=== PATIENT | female | born 1975 | race Two or more races ===

== ENCOUNTER 2021-03-06 05:35 | Inpatient (IN) | payer MEDICAID, OTHER ==
[~2021-03-06] VITALS: Ht 152.4 cm; Wt 73.3 kg
--- NOTE | 2021-03-06 05:45 | NUR ---
PATIENT'S PULSE OX 89% IN TRIAGE. NO RESPIRATORY DISTRESS NOTED. PATIENT PLACED ON 2LNC IN TRIAGE TO IMPROVE OXYGENATION STATUS, 96% WITH O2. EKG COMPLETED IN TRIAGE.
--- NOTE | 2021-03-06 07:43 | NUR ---
patient to room from lobby
--- NOTE | 2021-03-06 08:07 | NUR ---
PT LAYING IN BED, RESPIRATIONS UNLABORED. FREQUENT DRY COUGH. PT PLACED ON NC IN BED, 91% ON RA AND 97% ON 2L NC. PT DENIES MEDICAL HX. CHANGED INTO GOWN, [employer], BP AND SPO2 IN PLACE. AWAITING XRAY AND LABS.
[2021-03-06 08:31] LABS: BASOPHILS % (AUTO) 0 % (0-1); EOSINOPHILS % (AUTO) 0 % (1-7); LYMPHOCYTES % (AUTO) 12 % (22-44); MEAN CORPUSCULAR HEMOGLOBIN 25.5 pg (27.0-34.8); MEAN CORPUSCULAR HGB CONC 32.8 g/dL (32.4-35.8); MEAN PLATELET VOLUME 8.5 fL (7.4-10.4); MONOCYTES % (AUTO) 3 % (2-9); NEUTROPHILS % (AUTO) 85 % (42-75); PLATELET COUNT 189 x10^3/uL (130-400); RED BLOOD COUNT 4.45 x10^6/uL (3.82-5.3); RED CELL DISTRIBUTION WIDTH 17.6 % (9.6-15.2)
[2021-03-06 08:41] LABS: ALBUMIN 2.8 g/dL (3.4-5.0); ANION GAP 4 mmol/L (5-15); CALCIUM 8.5 mg/dL (8.5-10.1); CHLORIDE 105 mmol/L (98-107); CREATININE 0.75 mg/dL (0.55-1.02)
--- NOTE | 2021-03-06 09:02 | NUR ---
PT RESTING BACK IN BED, RESPIRATIONS EVEN AND UNLABORED, SLIGHTLY RAPID. NAD NOTED AT THIS TIME. PT HAS FREQUENT DRY COUGH. SIDE RAIL UP, CALL LIGHT IN REACH.
--- NOTE | 2021-03-06 10:05 | NUR ---
PT WAS ON 2L NASAL CANNULA PRIOR TO AMBULATION. PT AMBULATED IN HALLWAY WITH SPO2, STARTING 95% 95bpm. PT DROPPED TO 88% AND TACHYCARDIA AT 102bpm. PT ATTACHED TO ALL MONITORS AFTER AMBULATION. ROOM AIR SAT IN SUPINE POSITION WAS 85%. PT PLACED BACK ON 2L NASASL CANNULA, O2 STAT BACK AT 93%. HR AT 90.
[2021-03-06] MEDS ORDERED: DEXAMETHASONE 4 MG/ML, 1ML ONE (10:51)
[2021-03-06] MEDS ORDERED: ACETAMINOPHEN 325 MG TABLET ONE (10:51)
[2021-03-06] MEDS ORDERED: KETOROLAC 30 MG/1 ML ONE (10:51)
[2021-03-06] MEDS ORDERED: SODIUM CHLORIDE 0.9% 1,000ML IVBOLUS ONE (11:00)
[2021-03-06] MEDS ORDERED: CEFTRIAXONE 1,000 MG in DEXTROSE 5% 50 ML IVPB ONE (11:00)
[2021-03-06] MEDS ORDERED: DEXAMETHASONE 4 MG/ML, 1ML IV ONE (11:00)
[2021-03-06] MEDS ORDERED: KETOROLAC 30 MG/1 ML IVPush ONE (11:00)
[2021-03-06] MEDS ORDERED: AZITHROMYCIN 500 MG in SODIUM CHLORIDE 0.9% 250 ML IV ONE (11:00)
[2021-03-06] MEDS ORDERED: ACETAMINOPHEN 325 MG TABLET PO ONE (11:00)
--- NOTE | 2021-03-06 11:17 | NUR ---
AWAITING BLOOD CULTURE PRIOR TO ABX ADMINISTRATION. NAD NOTED IN PT AT THIS TIME. RESPIRATIONS EVEN AND UNLABORED ON NC. SIDE RAIL UP, CALL LIGHT IN REACH.
[2021-03-06 11:25] LABS: D-DIMER (DIC) 0.56 ug/mlFEU (0.00-0.52); PROTIME 9.6 Seconds (9.6-11.5)
[2021-03-06 11:27] LABS: ALANINE AMINOTRANSFERASE 61 U/L (12-78); ALKALINE PHOSPHATASE 84 U/L (45-117); BILIRUBIN,TOTAL 0.3 mg/dL (0.2-1.0); CREATININE 0.72 mg/dL (0.55-1.02); TOTAL PROTEIN 8.1 g/dL (6.4-8.2)
[2021-03-06 11:39] LABS: ANION GAP 7 mmol/L (5-15); CALCIUM 8.7 mg/dL (8.5-10.1); CHLORIDE 105 mmol/L (98-107)
[2021-03-06 11:40] LABS: ALBUMIN 3.1 g/dL (3.4-5.0)
--- NOTE | 2021-03-06 12:05 | NUR ---
PT RESTING BACK IN BED, HOSPITALIST AT BEDSIDE FOR ASSESSMENT.
[2021-03-06] MEDS ORDERED: HYDROcodone/APAP 5/325 TABLET PO PRN (12:30)
[2021-03-06] MEDS: DEXAMETHASONE 4 MG/ML, 1ML IVPush SCH (12:30)
[2021-03-06] MEDS ORDERED: MELATONIN 5 MG TABLET PO PRN (12:30)
[2021-03-06] MEDS ORDERED: ENALAPRILAT 1.25 MG/ML, 2ML IVPush PRN (12:30)
[2021-03-06] MEDS ORDERED: ONDANSETRON 2MG/ML, 2ML IVPush PRN (12:30)
[2021-03-06] MEDS ORDERED: CHOLECALCIFEROL 5,000u TAB ONE (12:39)
[2021-03-06] MEDS ORDERED: ENOXAPARIN 40 MG/0.4 ML ONE (12:39)
[2021-03-06] MEDS ORDERED: ZINC SULFATE 220 MG CAPSULE ONE (12:40)
[2021-03-06] MEDS: ZINC SULFATE 220 MG CAPSULE PO SCH (12:42)
[2021-03-06] MEDS: ENOXAPARIN 40 MG/0.4 ML SQ SCH (12:43)
[2021-03-06] MEDS: CHOLECALCIFEROL 5,000u TAB PO SCH (12:43)
--- NOTE | 2021-03-06 13:02 | NUR ---
REPORT TO YUNG HOOKER. PT LAYING BACK IN BED, IVF INFUSING PER EMAR. NAD NOTED AT THIS TIME.
--- NOTE | 2021-03-06 13:06 | NUR ---
FIRST ATTEMPT TO GIVE REPORT TO FLOOR.
[2021-03-06 13:47] LABS: HCT (SEDRATE) 34.6 % (34.6-47.8)
[2021-03-06 14:09] VITALS: BP 94/57
[2021-03-06] MEDS ORDERED: LEVO100T PO (14:21)
[2021-03-06 14:27] VITALS: BP 97/59
[2021-03-06 19:02] VITALS: BP 114/61
[2021-03-06] MEDS: ASCORBIC ACID 500 MG TABLET PO SCH (21:14)
[2021-03-06] MEDS: ACETAMINOPHEN 325 MG TABLET PO PRN (21:26)
[2021-03-06] MEDS: GUAIFENESIN/DM 200-20MG, 10ML UDC PO PRN (22:26)
[2021-03-07 01:24] VITALS: BP 107/65
[2021-03-07 05:41] LABS: HCT (SEDRATE) 33.8 % (34.6-47.8)
[2021-03-07 05:42] LABS: BASOPHILS % (AUTO) 0 % (0-1); EOSINOPHILS % (AUTO) 0 % (1-7); LYMPHOCYTES % (AUTO) 14 % (22-44); MEAN CORPUSCULAR HGB CONC 32.1 g/dL (32.4-35.8); MONOCYTES % (AUTO) 3 % (2-9); NEUTROPHILS % (AUTO) 83 % (42-75); PLATELET COUNT 215 x10^3/uL (130-400); RED BLOOD COUNT 4.34 x10^6/uL (3.82-5.3); RED CELL DISTRIBUTION WIDTH 17.6 % (9.6-15.2)
[2021-03-07 05:48] LABS: CHLORIDE 106 mmol/L (98-107)
[2021-03-07 05:56] LABS: D-DIMER 0.49 ug/mlFEU (0.00-0.52)
[2021-03-07 06:25] LABS: ALANINE AMINOTRANSFERASE 54 U/L (12-78); ALKALINE PHOSPHATASE 77 U/L (45-117); ANION GAP 7 mmol/L (5-15); BILIRUBIN,TOTAL 0.2 mg/dL (0.2-1.0); CALCIUM 8.8 mg/dL (8.5-10.1)
[2021-03-07 06:26] LABS: ALBUMIN 2.7 g/dL (3.4-5.0); TOTAL PROTEIN 7.5 g/dL (6.4-8.2)
[2021-03-07] MEDS ORDERED: AZITHROMYCIN 500 MG TABLET PO SCH (09:00)
[2021-03-07 09:01] VITALS: BP 102/63
[2021-03-07] MEDS: CHOLECALCIFEROL 5,000u TAB PO SCH (09:03)
[2021-03-07] MEDS: ACETAMINOPHEN 325 MG TABLET PO PRN (09:03)
[2021-03-07] MEDS: GUAIFENESIN/DM 200-20MG, 10ML UDC PO PRN ×2 (09:03→19:30)
[2021-03-07] MEDS: ZINC SULFATE 220 MG CAPSULE PO SCH (09:03)
[2021-03-07] MEDS: ASCORBIC ACID 500 MG TABLET PO SCH ×2 (09:03→16:50)
[2021-03-07] MEDS: DEXAMETHASONE 4 MG/ML, 1ML IVPush SCH (09:03)
[2021-03-07] MEDS ORDERED: REMDESIVIR 200 MG in SODIUM CHLORIDE 0.9% 100 ML IVPB ONE (10:30)
[2021-03-07 12:48] VITALS: BP_SYST 108; BP_SYST 164; BP_DIAS 69; BP_DIAS 96
[2021-03-07] MEDS: CEFTRIAXONE 2 GM in DEXTROSE 5% 50 ML IVPB SCH (12:50)
[2021-03-07] MEDS: ENOXAPARIN 40 MG/0.4 ML SQ SCH (12:50)
[2021-03-07 19:19] VITALS: BP 96/61
[2021-03-07] MEDS ORDERED: FENO48TA10 PO (19:35)
[2021-03-07] MEDS ORDERED: SUCR1TAB PO (19:35)
[2021-03-07] MEDS ORDERED: FENOFIBRATE 48 MG PO SCH (21:00)
[2021-03-08 00:18] VITALS: BP 98/64
[2021-03-08] MEDS: GUAIFENESIN/DM 200-20MG, 10ML UDC PO PRN ×2 (05:15→14:32)
[2021-03-08 05:34] LABS: ALBUMIN 2.8 g/dL (3.4-5.0); ANION GAP 7 mmol/L (5-15); CALCIUM 9.2 mg/dL (8.5-10.1); CHLORIDE 103 mmol/L (98-107)
[2021-03-08 05:36] LABS: D-DIMER 0.35 ug/mlFEU (0.00-0.52)
[2021-03-08 05:49] LABS: BASOPHILS % (AUTO) 0 % (0-1); EOSINOPHILS % (AUTO) 0 % (1-7); LYMPHOCYTES % (AUTO) 19 % (22-44); MEAN CORPUSCULAR HEMOGLOBIN 25.4 pg (27.0-34.8); MEAN CORPUSCULAR HGB CONC 32.9 g/dL (32.4-35.8); MEAN PLATELET VOLUME 8.8 fL (7.4-10.4); MONOCYTES % (AUTO) 5 % (2-9); NEUTROPHILS % (AUTO) 76 % (42-75); PLATELET COUNT 258 x10^3/uL (130-400); RED BLOOD COUNT 4.36 x10^6/uL (3.82-5.3); RED CELL DISTRIBUTION WIDTH 17.6 % (9.6-15.2)
[2021-03-08 05:51] LABS: BILIRUBIN,TOTAL 0.2 mg/dL (0.2-1.0); CREATININE 0.57 mg/dL (0.55-1.02)
[2021-03-08 05:52] LABS: ALKALINE PHOSPHATASE 77 U/L (45-117)
[2021-03-08 05:54] LABS: TOTAL PROTEIN 8.1 g/dL (6.4-8.2)
[2021-03-08 05:55] LABS: ALANINE AMINOTRANSFERASE 60 U/L (12-78)
[2021-03-08] MEDS ORDERED: LEVOTHYROXINE 100 MCG TABLET PO SCH (06:00)
[2021-03-08] MEDS: ASCORBIC ACID 500 MG TABLET PO SCH ×2 (07:36→16:04)
[2021-03-08] MEDS: ZINC SULFATE 220 MG CAPSULE PO SCH (07:36)
[2021-03-08] MEDS: CHOLECALCIFEROL 5,000u TAB PO SCH (07:36)
[2021-03-08 07:45] VITALS: BP 95/63
[2021-03-08] MEDS ORDERED: DEXAMETHASONE 4 MG TABLET PO SCH (08:00)
[2021-03-08] MEDS ORDERED: ENOXAPARIN 40 MG/0.4 ML SQ SCH (08:00)
[2021-03-08] MEDS ORDERED: ACETAMINOPHEN 325 MG TABLET PO PRN (08:00)
[2021-03-08 08:58] LABS: O2 FLOW ROOM AIR L/min
[2021-03-08] MEDS ORDERED: REMDESIVIR 100 MG in SODIUM CHLORIDE 0.9% 100 ML IVPB SCH (10:30)
[2021-03-08] MEDS ORDERED: AMOX-291 PO (11:49)
[2021-03-08] MEDS ORDERED: DOXY-246 PO (11:49)
[2021-03-08] MEDS ORDERED: DEXA4TAB66 PO (11:49)
[2021-03-08] MEDS ORDERED: ASCO500T9 PO (11:49)
[2021-03-08] MEDS: CEFTRIAXONE 2 GM in DEXTROSE 5% 50 ML IVPB SCH (12:30)
[2021-03-08 14:09] VITALS: BP 106/63
[2021-03-08] MEDS ORDERED: DIPHENHYDRAMINE 25 MG CAPSULE PO ONE (16:00)
[2021-03-08] MEDS ORDERED: APIX5TAB4 PO (16:07)
[2021-03-09] MEDS ORDERED: DEXAMETHASONE 4 MG TABLET PO SCH (07:30)
== END 2021-03-08 18:41 | disposition home or self-care (01) | DRG 871 ==
LOC: ED 08:00 → EDIP 12:01 → 3N 13:03
PROVIDERS: ADMIT Hospitalist; ATTEND Internal Medicine
PROC: XW033E5 Introduction of Remdesivir Anti-infective into Peripheral Vein, Percutaneous Approach, New Technology Group 5 (ICD-10-PCS; principal; 2021-03-07)
DX: A41.89 Other specified sepsis (principal); J12.82 Pneumonia due to coronavirus disease 2019; J96.01 Acute respiratory failure with hypoxia; U07.1 COVID-19; E03.9 Hypothyroidism, unspecified; E66.9 Obesity, unspecified; E78.00 Pure hypercholesterolemia, unspecified; Z79.899 Other long term (current) drug therapy; Z68.31 Body mass index [BMI] 31.0-31.9, adult
CPT/HCPCS: 36415; 36600; 71045; 80048; 80053; 82040; 82728; 82803; 83605; 83615; 83735; 84100; 84145; 84703; 85025; 85049; 85379; 85384; 85610; 85651; 85730; 86140; 87040; 93005; 99285; G0378; J0456; J0696; J1100; J1650; J1885; J7030; J7050; Q0163